=== PATIENT | male | born 1990 | race Asian ===

== ENCOUNTER 2020-10-24 04:24 | Emergency (ER) | payer SELFPAY ==
[~2020-10-24] VITALS: Ht 165.1 cm; Wt 54.4 kg
[2020-10-24 04:27] VITALS: BP 116/70
[2020-10-24 04:40] VITALS: BP 116/70
[2020-10-24] MEDS ORDERED: Mylanta II UD 30ml ORAL ONE (04:45)
--- NOTE | 2020-10-24 04:47 | NUR ---
pt aox3. medicated per mar
--- NOTE | 2020-10-24 04:51 | Emergency Room Report ---
History of Present Illness General Chief Complaint: Vomiting Source: Patient Present Illness HPI The patient presents complaining of nausea, vomiting and abdominal discomfort. This began after eating a meal with other people who have become ill also. 5 of 8 friends had nausea and vomiting. He denies any fevers or chills. There is no diarrhea. The patient denies dysuria. He rates the pain in his stomach as 3/10 and intermittent. He describes it as burning and cramping. Mainly epigastric. He has been vomiting foodstuff and there has not been any blood. He was drinking wine tonight. No medications have been taken. He feels better at this time with less pain and also does not feel the urge to vomit. He tried drinking hot water which may have helped somewhat. Patient denies exposure to Covid positive contacts. Allergies: Coded Allergies: No Known Allergies (Unverified , 10/24/20) COVID-19 Screening Contact w/high risk pt: No Experienced COVID-19 symptoms?: No COVID-19 Testing performed CLINICAL REVIEW SPECIALIST: No Patient History Past Medical History: none Social History: Reports: alcohol use Social History Narrative Traveling with friends Reviewed Nursing Documentation: PMH: Agreed; PSxH: Agreed Review of Systems Constitutional: Reports: see HPI Gastrointestinal: Reports: see HPI Genitourinary: Reports: see HPI Skin: Denies: rash Neurological: Denies: headache, dizziness Physical Exam Vital Signs Date Time Temp Pulse Resp B/P (MAP) Pulse Ox O2 Delivery O2 Flow Rate FiO2 10/24/20 04:27 98.6 77 18 116/70 (85) 98 Room Air Sp02 EP Interpretation: reviewed, normal General Appearance: well appearing, no apparent distress, GCS 15 Head: normocephalic Eyes: bilateral eye normal inspection, bilateral eye PERRL ENT: moist mucus membranes Cardiovascular #1: regular rate, rhythm Gastrointestinal: normal inspection Musculoskeletal: gait/station normal Neurologic: alert Medical Decision Making Diagnostic Impression: Primary Impression: Food poisoning ER Course The patient presents with nausea vomiting abdominal pain after eating food where others have become ill in a similar manner. Differential includes food poisoning, gastroenteritis, gastritis, early amongst others. As the patient is feeling better at this time no labs are indicated. The patient will be treated with Zofran and Mylanta. Patient tolerating oral intake. Improved after treatment here. Discussed findings with patient and treatment plan. Discussed the need for reevaluation if the patient worsens. Patient stable for outpatient observation and treatment. Last Vital Signs Date Time Temp Pulse Resp B/P (MAP) Pulse Ox O2 Delivery O2 Flow Rate FiO2 10/24/20 04:40 77 18 Room Air 10/24/20 04:40 98.6 116/70 98 Status: improved Disposition: HOME, SELF-CARE Condition: Improved Scripts Ondansetron Odt* (ZOFRAN ODT*) 4 Mg Tab.rapdis 4 MG BC EVERY 8 HOURS, #4 TAB 0 Refills Prov: Juvenal Jay MD 10/24/20 Referrals: NOT CHOSEN IPA/,REFERRING (PCP) Juvenal Jay MD Oct 24, 2020 04:51
[2020-10-24] MEDS ORDERED: ONDANSETRON ODT4 MG BC (04:53)
--- NOTE | 2020-10-24 04:56 | NUR ---
pt aox3 given and understands discharge instructions. ambulatory out w steady gait
== END 2020-10-24 04:57 | disposition home or self-care (01) ==
LOC: EMR 04:42
DX: A05.9 Bacterial foodborne intoxication, unspecified (principal)
CPT/HCPCS: 99282